=== PATIENT | male | born 1975 | race Two or more races ===

== ENCOUNTER 2020-04-14 05:45 | Day surgery (SDC) | payer OTHER | END 2020-04-14 10:15 | disposition home or self-care (01) | LOC: AMB-ENDOS 05:45 | PROVIDERS: ATTEND Surgery | DX: K62.89 Other specified diseases of anus and rectum (principal); K64.4 Residual hemorrhoidal skin tags; Z20.828 Contact with and (suspected) exposure to other viral communicable diseases ==